=== PATIENT | female | born 1990 ===

== ENCOUNTER 2018-12-17 12:36 | Emergency (ER) | payer OTHER ==
[2018-12-17 12:39] VITALS: BMI 17.7
[2018-12-17 12:43] VITALS: RESP 18; TEMP 98.9
[2018-12-17] MEDS ORDERED: Sodium Chloride 0.9% 1,000 ML IV ONE (13:01)
--- NOTE | 2018-12-17 13:18 | C.PDOC ---
History Of Present Illness 28 y/o female, and LNMP approximately 10/21/18, comes in to ED complaining of lower abdominal pain and vaginal bleeding since this morning. Patient states that she was found to be and an US at a clinic was done on 12/02/18. States that it was too early to see anything as per the clinic. Patient states that she has history of tubal ligation approximately 4 years ago in the country of [facility]. Time Seen by Provider: 12/17/18 12:44 Chief Complaint (Nursing): Female Genitourinary History Per: Patient History/Exam Limitations: no limitations Onset/Duration Of Symptoms: Hrs Current Symptoms Are (Timing): Still Present Past Medical History Reviewed: Historical Data, Nursing Documentation, Vital Signs Vital Signs: Last Vital Signs Temp 98.9 F 12/17/18 12:41 Pulse 96 H 12/17/18 12:41 Resp 18 12/17/18 12:41 BP 116/76 12/17/18 12:41 Pulse Ox 99 12/17/18 12:41 - Medical History PMH: Asthma Family History: States: No Known Family Hx - Social History Hx Alcohol Use: No Hx Substance Use: No - Immunization History Hx Tetanus Toxoid Vaccination: Yes Hx Influenza Vaccination: No Hx Pneumococcal Vaccination: No Review Of Systems Except As Marked, All Systems Reviewed And Found Negative. Constitutional: Negative for: Fever, Chills Gastrointestinal: Positive for: Abdominal Pain. Negative for: Nausea, Vomiting Genitourinary: Positive for: Vaginal Bleeding Physical Exam - Physical Exam Appears: Non-toxic, Other (Mild to moderate distress) Skin: Warm, Dry Head: Atraumatic, Normacephalic Eye(s): bilateral: Normal Inspection Oral Mucosa: Moist Neck: Supple Cardiovascular: Rhythm Regular, No Murmur Respiratory: Normal Breath Sounds, No Rales, No Rhonchi, No Wheezing Gastrointestinal/Abdominal: Soft, Tenderness (lower abdominal tenderness) Rectal: Deferred Extremity: Bilateral: Atraumatic, Normal ROM Neurological/Psych: Oriented x3, Normal Speech ED Course And Treatment - Laboratory Results Result Diagrams: 12/17/18 13:15 12/17/18 13:15 O2 Sat by Pulse Oximetry: 99 (RA) Pulse Ox Interpretation: Normal - CT Scan/US Pelvic US Other Rad Studies (CT/US): Read By Radiologist, Radiology Report Reviewed CT/US Interpretation: Findings: Uterus: 9.2 x 4.9 x 5.1 centimeters. Hetero geneous echotexture. Anteverted. Endometrium measures 8 millimeters, within normal limits. Cervix measures 2.9 centimeters. Free fluid within the pelvic cul-de-sac. Right ovary: 2.4 x 1.8 x 2.9 centimeters. Normal flow. Left ovary: 2.4 x 2.0 x 2.9 centimeters. Normal flow. Heterogeneous hypoechoic cyst measuring 1.0 x 0.9 x 1.2 centimeters with some internal echogenicity and or septations and an additional hypoechoic cyst measuring 1.1 x 0.7 x 0.6 centimeters. Impression: 1. test pending. In the setting of a positive test and lack of discrete intrauterine , considerations may include an early versus missed versus ectopic . Clinical correlation. Continued interval sonographic follow- up and INDUSTRIAL TRAINER correlation is recommended if clinically indicated. 2. Left ovarian cysts. 4-6 week interval follow-up may be helpful if clinically indicated. 3. Free fluid within the pelvic cul-de-sac. Medical Decision Making Medical Decision Making: Plan: --Labs --Urine Culture --POC Urine test --pelvis US Disposition - Disposition Referrals: Dermira Javier Modi, [Non-Staff] - Disposition: HOME/ ROUTINE Disposition Time: 16:00 Condition: GOOD Additional Instructions: PERICO LONG, thank you for letting us take care of you today. The emergency medical care you received today was directed at your acute symptoms. If you were prescribed any medication, please fill it and take as directed. It may take several days for your symptoms to resolve. Return to the Emergency Department if your symptoms worsen, do not improve, or if you have any other problems. Please contact your doctor or call one of the physicians/clinics you have been referred to that are listed on the Patient Visit Information form that is included in your discharge packet. Bring any paperwork you were given at discharge with you along with any medications you are taking to your follow up visit. Our treatment cannot replace ongoing medical care by a primary care provider outside of the emergency department. Thank you for allowing the [facility] team to be part of your care today. Follow up with your INDUSTRIAL TRAINER doctor in 2-3 days for re-evaluation and further management. He/she can access your test results. PERICO LONG, john por dejarnos cuidar de usted hoy. La atencin mdi ca de emergencia que recibi hoy se dirigi a henri sntomas agudos. Si le recetaron algn medicamento, llnelo y tmelo segn las indicaciones. Los sntomas pueden tardar varios harp en resolverse. Regrese al Departamento de Emergencias si henri sntomas empeoran, no mejoran o si tiene otros problemas. Comunquese con mckeon mdico o llame a marilin de los mdicos / clnicas a los que zelaya sido referido que figuran en el formulario de Informacin de visita al paciente que se incluye en mckeon paquete de lilly. Lleve todos los documentos que recibi al momento del lilly junto con los medicamentos que est tomando para mckeon visita de seguimiento. Nuestro tratamiento no puede reemplazar la atencin mdica continua por parte de un proveedor de atencin primaria fuera del departamento de emergencias. John por permitir que el equipo de [facility] sea parte de mckeon atencin hoy. Niall un seguimiento con mckeon mdico gineclogo en 2 a 3 harp para jesenia reevaluacin y manejo adicional. l / stephanie puede acceder a los resultados de mckeon prueba. Prescriptions: Ibuprofen [Motrin] 600 mg PO Q6 PRN #20 tab PRN Reason: Pain, Moderate (4-7) Sulfamethoxazole/Trimethoprim [Bactrim DS 800 mg-160 mg] 1 tab PO BID #10 tab Instructions: Urinary Tract Infection, Adult (DC), Miscarriage (DC) Forms: [employer] (Frisian) Print Language: BELGIAN - Clinical Impression Clinical Impression: UTI (urinary tract infection), Vaginal bleeding - Scribe Statement The provider has reviewed the documentation as recorded by the Lamont Ricketts Provider Attestation: All medical record entries made by the Scribe were at my direction and personally dictated by me. I have reviewed the chart and agree that the record a ccurately reflects my personal performance of the history, physical exam, medical decision making, and the department course for this patient. I have also personally directed, reviewed, and agree with the discharge instructions and disposition.
[2018-12-17 13:19] LABS: EOS # 0.1 K/uL (0.0-0.7); EOS % 2.1 % (0.0-4.0); HEMOGLOBIN 12.8 g/dL (11.0-16.0); LYMPH # 2.2 K/uL (1.0-4.3); LYMPH % 46.3 % (20.0-40.0); MEAN CELL VOLUME 89.7 fL (81.0-99.0); MEAN CORPUSCULAR HEMOGLOBIN 29.8 pg (27.0-31.0); MEAN CORPUSCULAR HGB CONC 33.2 g/dL (33.0-37.0); MEAN PLATELET VOLUME 9.4 fL (7.2-11.7); MONO # 0.4 K/uL (0.0-0.8); MONO % 9.6 % (0.0-10.0); NEUT # 1.9 K/uL (1.8-7.0); NRBC % 0.1 % (0.0-2.0); RBC 4.31 Mil/uL (3.80-5.20); RED CELL DISTRIBUTION WIDTH 12.6 % (11.5-14.5); WHITE BLOOD COUNT 4.7 K/uL (4.8-10.8)
[2018-12-17 13:35] LABS: ALB/GLOB RATIO 1.5 (1.0-2.1); ALBUMIN 4.1 g/dL (3.5-5.0); ALT/SGPT 12 U/L (9-52); AST/SGOT 23 U/L (14-36); BLOOD UREA NITROGEN 15 mg/dL (7-17); CALCIUM 9.5 mg/dl (8.6-10.4); GFR NON-AFRICAN AMERICAN > 60; LIPASE 97 U/L (23-300)
[2018-12-17] MEDS ORDERED: Iohexol 300 100 ML IJ ONE (14:36)
[2018-12-17 15:15] LABS: URINE BILIRUBIN NEGATIVE (NEGATIVE); URINE CLARITY CLOUDY (Clear); URINE COLOR RED (YELLOW); URINE GLUCOSE (UA) NEGATIVE (Normal)
[2018-12-17 15:16] LABS: PH,URINE 8.5 (5.0-8.0); URINE BLOOD 3+ (NEGATIVE); URINE LEUKOCYTE ESTERASE NEGATIVE Leu/uL (Negative); URINE PROTEIN 2+ mg/dL (NEGATIVE)
[2018-12-17 15:17] LABS: URINE BACTERIA RARE (<OCC)
[2018-12-17 15:20] VITALS: BP 120/72; PULSE 82
--- NOTE | 2018-12-17 15:56 | US ---
Pelvic ultrasound HISTORY: Vaginal bleeding. COMPARISON: None available. TECHNIQUE: Real-time sonography was performed through the pelvis utilizing transabdominal and transvaginal technique. Findings: Uterus: 9.2 x 4.9 x 5.1 centimeters. Heterogeneous echotexture. Anteverted. Endometrium measures 8 millimeters, within normal limits. Cervix measures 2.9 centimeters. Free fluid within the pelvic cul-de-sac. Right ovary: 2.4 x 1.8 x 2.9 centimeters. Normal flow. Left ovary: 2.4 x 2.0 x 2.9 centimeters. Normal flow. Heterogeneous hypoechoic cyst measuring 1.0 x 0.9 x 1.2 centimeters with some internal echogenicity and or septations and an additional hypoechoic cyst measuring 1.1 x 0.7 x 0.6 centimeters. Impression: 1. test pending. In the setting of a positive test and lack of discrete intrauterine , considerations may include an early versus missed versus ectopic . Clinical correlation. Continued interval sonographic follow-up and FORESTRY EXTENSION SPECIALIST correlation is recommended if clinically indicated. 2. Left ovarian cysts. 4-6 week interval follow-up may be helpful if clinically indicated. 3. Free fluid within the pelvic cul-de-sac.
[2018-12-17 17:11] VITALS: O2SAT 99
== END 2018-12-17 16:26 | disposition home or self-care (01) ==
LOC: C.ER 12:36
DX: N39.0 Urinary tract infection, site not specified (principal); N93.9 Abnormal uterine and vaginal bleeding, unspecified
CPT/HCPCS: 76830; 76856; 80053; 81001; 81025; 83690; 84702; 85025; 86850; 86900; 87086; 96360; 99284; J7030; Q9967